=== PATIENT | female | born 1930 | race Caucasian/White ===

== ENCOUNTER 2016-11-09 16:36 | Emergency (ER) | payer MEDICARE, MEDICAID ==
[~2016-11-09] VITALS: Ht 160 cm; Wt 78.0 kg
[2016-11-09] MEDS ORDERED: IPRATROPIUM NEB FS 0.5 MG/2.5 ML AMPUL.NEB ONE (16:41)
[2016-11-09] MEDS ORDERED: ALBUTEROL FS 2.5 MG/3 ML VIAL.NEB ONE ×3 (16:41→19:15)
[2016-11-09] MEDS ORDERED: Magnesium 1GM/D5W 100ML PREMIX 200 ML IV ONE (16:42)
[2016-11-09] MEDS ORDERED: IV NS 0.9% 50 ML IV ONE (16:47)
[2016-11-09] MEDS ORDERED: Magnesium 1GM/D5W 100ML PREMIX 100 ML IV ONE ×2 (16:47→17:34)
[2016-11-09] MEDS ORDERED: IV SET PRIMARY PUMP SET 1 EA INFUS.SET MC ONE ×2 (16:47→17:34)
[2016-11-09] MEDS ORDERED: DEXAMETHASONE SOD PHOSPHATE 10 MG/ML VIAL ONE (16:47)
[2016-11-09] MEDS ORDERED: IPRATROPIUM NEB FS 0.5 MG/2.5 ML AMPUL.NEB NEB ONE (17:00)
[2016-11-09] MEDS ORDERED: ALBUTEROL FS 2.5 MG/3 ML VIAL.NEB CONTNEB ONE (17:00)
[2016-11-09] MEDS ORDERED: DEXAMETHASONE SOD PHOSPHATE 10 MG/ML VIAL IV ONE (17:00)
[2016-11-09 17:17] LABS: DIFF TOTAL % 100 %; EOSINOPHILS % (AUTO) 0.1 % (0.0-6.0); HEMATOCRIT 35 % (33-45); HEMOGLOBIN 11.5 g/dL (11.5-14.8); LYMPHOCYTES # (AUTO) 0.7 /CMM (0.8-4.8); LYMPHOCYTES % (AUTO) 5.5 % (20.0-44.0); MEAN CORPUSCULAR HEMOGLOBIN 27 PG (26.0-33.0); MEAN CORPUSCULAR HGB CONC 33 g/dl (31.0-36.0); MEAN CORPUSCULAR VOLUME 84 fL (82-100); MONOCYTES # (AUTO) 0.4 /CMM (0.1-1.30); MONOCYTES % (AUTO) 3.5 % (2.0-12.0); NEUTROPHILS % (AUTO) 90.9 % (43.0-81.0); PLATELET COUNT (AUTO) 270 /CMM (150-450); RED BLOOD CELL COUNT(AUTO) 4.18 MIL/uL (4.0-5.2); WHITE BLOOD COUNT (AUTO) 12.1 K/uL (4.3-11.0)
[2016-11-09 17:34] LABS: TROPONIN I < 0.017 ng/mL (0.00-0.056)
[2016-11-09 17:40] LABS: ALANINE AMINOTRANSFERASE 18 U/L (12-78); ALBUMIN 3.4 g/dL (3.4-5.0); ANION GAP 15 (5-14); ASPARTATE AMINOTRANSFERASE 15 U/L (15-37); BILIRUBIN,TOTAL 0.2 mg/dL (0.2-1.0); CALCIUM, SERUM 10.9 mg/dL (8.5-10.1); CARBON DIOXIDE 22 mmol/L (21-32); CHLORIDE 100 mmol/L (98-107); CREATININE 1.4 mg/dL (0.6-1.3); GLUCOSE 228 mg/dL (74-106); POTASSIUM 4.1 mmol/L (3.5-5.1); SODIUM SERUM 133 mmol/L (136-145); TOTAL PROTEIN, SERUM 6.3 g/dL (6.4-8.2); UREA NITROGEN, BLOOD 32 mg/dL (7-18)
[2016-11-09 18:10] LABS: *LACTIC ACID REFLEX FLAG YES
[2016-11-09] MEDS ORDERED: FUROSEMIDE 20 MG/2 ML VIAL ONE (18:57)
[2016-11-09] MEDS ORDERED: FUROSEMIDE 20 MG/2 ML VIAL IV ONE (19:00)
[2016-11-09] MEDS ORDERED: ALBUTEROL FS 2.5 MG/0.5 ML VIAL.NEB NEB ONE (19:00)
[2016-11-09 19:06] LABS: KETONES,URINE NEGATIVE (NEGATIVE); LEUKOCYTE ESTERASE ,URINE TRACE (NEGATIVE); PH,URINE 5.5 (5.0-8.0)
[2016-11-09 19:16] LABS: ADD UA MICROSCOPIC YES
[2016-11-09 19:26] LABS: ADD URINE CULTURE YES
[2016-11-09] MEDS ORDERED: NITROFURANTOIN/NITROFURAN MAC 100 MG CAPSULE PO ONE (19:30)
[2016-11-09] MEDS ORDERED: NITROFURANTOIN/NITROFURAN MAC 100 MG CAPSULE ONE (21:05)
[2016-11-09 21:28] VITALS: BP 120/62
== END 2016-11-09 21:46 | disposition short-term general hospital (02) ==
LOC: ER 16:38 → MERGE 16:38 → ER 21:46
DX: J45.901 Unspecified asthma with (acute) exacerbation (principal); Z88.0 Allergy status to penicillin; Z88.2 Allergy status to sulfonamides; Z88.1 Allergy status to other antibiotic agents; Z88.5 Allergy status to narcotic agent
CPT/HCPCS: 36415; 71010; 80048; 80076; 81001; 83605 ×2; 83880; 84484; 85025; 87040; 87077; 87081; 87086; 87186; 87804; 93005; 94644; 96365; 96375; 99291; A4216; A4606; J1100; J1940; J3475 ×2; 81000-TC; 87400; Z7610

== ENCOUNTER 2017-07-20 14:30 | Outpatient (CLI) | payer MEDICARE, MEDICAID | END 2017-07-20 23:59 | disposition home health service (06) | LOC: WOU 14:30 | PROVIDERS: ATTEND Surgery | DX: L89.321 Pressure ulcer of left buttock, stage 1 (principal); L89.311 Pressure ulcer of right buttock, stage 1; E66.9 Obesity, unspecified; Z68.31 Body mass index [BMI] 31.0-31.9, adult; E11.9 Type 2 diabetes mellitus without complications; M19.90 Unspecified osteoarthritis, unspecified site; Z74.09 Other reduced mobility; K21.9 Gastro-esophageal reflux disease without esophagitis; J44.9 Chronic obstructive pulmonary disease, unspecified | CPT/HCPCS: A6209; A6402; G0463 ==

== ENCOUNTER 2017-12-15 18:48 | Inpatient (IN) | payer MEDICARE, MEDICAID ==
[~2017-12-15] VITALS: Ht 165.1 cm; Wt 74.4 kg
--- NOTE | 2017-12-15 19:00 | NUR ---
Recieved pt to ed bed 02, pt was brought in 911 from home for generalized weakness and rt leg pain. accdg to daughter pt was sitting in the toilet seat and coud not get up. she's not eating for the past 2 days because she has no apetite. denies pain/sob/cehst pain. pt placed on cont monitoring. all needs are attended.
--- NOTE | 2017-12-15 19:09 | NUR ---
report given to
--- NOTE | 2017-12-15 19:58 | NUR ---
IN AND OUT CATH DONE AT THE BEDSIDE.
[2017-12-15 20:01] LABS: BASOPHILS # (AUTO) 0.9 /CMM (0.0-0.2); BASOPHILS % (AUTO) 4.6 % (0.0-2.0); EOSINOPHILS % (AUTO) 0.1 % (0.0-6.0); HEMATOCRIT 35 % (33-45); HEMOGLOBIN 12.1 g/dL (11.5-14.8); LYMPHOCYTES # (AUTO) 0.7 /CMM (0.8-4.8); LYMPHOCYTES % (AUTO) 3.9 % (20.0-44.0); MEAN CORPUSCULAR HEMOGLOBIN 29 PG (26.0-33.0); MEAN CORPUSCULAR HGB CONC 35 g/dl (31.0-36.0); MEAN CORPUSCULAR VOLUME 83 fL (82-100); MONOCYTES # (AUTO) 1.3 /CMM (0.1-1.30); MONOCYTES % (AUTO) 6.6 % (2.0-12.0); NEUTROPHILS # (AUTO) 16.1 /CMM (1.8-8.9); NEUTROPHILS % (AUTO) 84.8 % (43.0-81.0); PLATELET COUNT (AUTO) 303 /CMM (150-450); RDW COEFFICIENT OF VARIATION 13.2 (11.5-15.0); RED BLOOD CELL COUNT(AUTO) 4.21 MIL/uL (4.0-5.2)
--- NOTE | 2017-12-15 20:12 | NUR ---
XRAY DONE AT THE BEDSIDE.
[2017-12-15 20:14] LABS: CALCIUM, SERUM 10.8 mg/dL (8.5-10.1); CARBON DIOXIDE 23 mmol/L (21-32); CHLORIDE 100 mmol/L (98-107); CREATININE 1.2 mg/dL (0.6-1.3); GLUCOSE 164 mg/dL (74-106); POTASSIUM 5.5 mmol/L (3.5-5.1); SODIUM SERUM 132 mmol/L (136-145); UREA NITROGEN, BLOOD 24 mg/dL (7-18)
[2017-12-15 20:16] LABS: INR 0.99 (0.85-1.15)
[2017-12-15 20:21] LABS: ALANINE AMINOTRANSFERASE 21 U/L (12-78); ALBUMIN 3.4 g/dL (3.4-5.0); ALKALINE PHOSPHATASE 75 U/L (46-116); ASPARTATE AMINOTRANSFERASE 37 U/L (15-37); BILIRUBIN,TOTAL 0.4 mg/dL (0.2-1.0); TROPONIN I < 0.017 ng/mL (0.00-0.056)
[2017-12-15 20:48] LABS: APPEARANCE,URINE Slightly Cloudy (CLEAR); BILIRUBIN,URINE Negative (NEGATIVE); BLOOD, URINE Trace-intact Ery/uL (NEGATIVE); COLOR,URINE Yellow (YELLOW); KETONES,URINE Negative (NEGATIVE); LEUKOCYTE ESTERASE ,URINE Trace (NEGATIVE); NITRITE, URINE Negative (NEGATIVE); PROTEIN,URINE Trace mg/dl (NEGATIVE); UGLUCOSE Negative (NEGATIVE); UROBILINOGEN,URINE 0.2 EU/dL (0.2)
[2017-12-15 20:59] LABS: BACTERIA,URINE Many /HPF (None Seen); SQUAMOUS EPITHELIAL CELL,UR Few /HPF (None Seen)
--- NOTE | 2017-12-15 21:12 | NUR ---
CALLED [employer] PACKAGING CLERK WAS PAGED.
[2017-12-15] MEDS ORDERED: LEVOFLOXACIN 750 MG /D5W 150ML 750 MG in PREMIX 1 EA IV SCH (21:30)
[2017-12-15] MEDS ORDERED: IV NS 0.9% 500 ML BAG IV ONE (21:30)
[2017-12-15] MEDS ORDERED: CHOL200026 PO (21:35)
[2017-12-15] MEDS ORDERED: MAGN500C16 PO (21:35)
[2017-12-15] MEDS ORDERED: PROVENTIL INH (21:35)
[2017-12-15] MEDS ORDERED: LINA290C PO (21:35)
[2017-12-15] MEDS ORDERED: METH4TAB17 PO (21:35)
[2017-12-15] MEDS ORDERED: FUROSEMIDE (21:35)
[2017-12-15] MEDS ORDERED: TYLENOL #3 (21:35)
[2017-12-15] MEDS ORDERED: METF500T4 PO (21:35)
[2017-12-15] MEDS ORDERED: SPIRONOLACTONE (21:35)
[2017-12-15] MEDS ORDERED: ALLO100T PO (21:35)
[2017-12-15] MEDS ORDERED: ATOR10TA PO (21:35)
[2017-12-15] MEDS ORDERED: SINGULAIR (21:35)
[2017-12-15] MEDS ORDERED: MAGN400T6 PO (21:35)
[2017-12-15] MEDS ORDERED: [UNRECOGNIZED DRUG - OTHER] (21:35)
[2017-12-15] MEDS ORDERED: AZIL40TA PO (21:35)
[2017-12-15] MEDS ORDERED: CINA30TA2 PO (21:35)
[2017-12-15] MEDS ORDERED: ESOM40CA PO (21:35)
[2017-12-15] MEDS ORDERED: TRAV5DRO OP (21:35)
[2017-12-15] MEDS ORDERED: CLOP75TA15 PO (21:35)
[2017-12-15] MEDS ORDERED: MIRABEGRON (21:35)
[2017-12-15] MEDS ORDERED: LEVOFLOXACIN 750 MG /D5W 150ML 150 ML IV ONE (21:37)
--- NOTE | 2017-12-15 21:46 | NUR ---
LATANYA PUGA AT THE BEDSIDE.
--- NOTE | 2017-12-15 21:47 | NUR ---
PT REC'D MEDICATION ORDERED.
--- NOTE | 2017-12-15 21:50 | NUR ---
PT STATED THAT SHE TAKES LEVOQUIN. DR. MORA IS AWARE. PT'S ALLERGY IS TO CIPRO.
[2017-12-15] MEDS ORDERED: diphenhydrAMINE HCL 50 MG/ML VIAL ONE (21:59)
--- NOTE | 2017-12-15 22:03 | NUR ---
WENT IN TO CHECK ON PT AND REMOVE THE BED SON. PT WAS SCRATCHING HER RT ARM. PT DENIES FEELING ITCHY. BED SON REMOVED.
--- NOTE | 2017-12-15 22:03 | NUR ---
PT REACTED TO LEVOQUIN. IV INFUSION STOPPED. IV FLUSHED WITH 10ML SALINE. PT REC'D BENADRYL IVP PER DR. MORA
[2017-12-15] MEDS ORDERED: MEROPENEM 500 MG VIAL IV ONE (22:06)
--- NOTE | 2017-12-15 22:16 | NUR ---
PT APPEARS TO BE RESTING COMFORTABLY. NO S/S OF REACTION NOTED.
--- NOTE | 2017-12-15 22:17 | NUR ---
CALLED TO GIVE REPORT. UNABLE TO GIVE REPORT NOW. WILL CALL BACK IN 10 MINS.
[2017-12-15] MEDS ORDERED: diphenhydrAMINE HCL 50 MG/ML VIAL IV ONE (22:30)
[2017-12-15] MEDS ORDERED: MEROPENEM 500 MG in IV NS 0.9% 50 ML IV ONE (22:30)
--- NOTE | 2017-12-15 22:35 | NUR ---
REPORT GIVEN TO LEONILA CASTANEDA
[2017-12-15 23:00] VITALS: BP 139/96
[2017-12-15] MEDS ORDERED: ONDANSETRON HCL/PF 4 MG/2 ML VIAL IVP PRN (23:00)
[2017-12-15] MEDS ORDERED: MAGNESIUM HYDROXIDE 30 ML UDC PO PRN (23:00)
[2017-12-15] MEDS ORDERED: MAG HYDROX/AL HYDROX/SIMETH 30 ML UDC PO PRN (23:00)
[2017-12-15] MEDS ORDERED: Z GUARD REMEDY 2 OZ OINT TP PRN (23:00)
[2017-12-15] MEDS ORDERED: HYDROCODONE/APAP 5/325MG 1 EACH TABLET PO PRN (23:00)
--- NOTE | 2017-12-15 23:00 | NUR ---
MS/RN NOTES RECEIVED PATIENT FROM ER ARRIVED ON A GURNEY, ALERT, ORIENTEDX1, WEAK, FAMILY AT BEDSIDE, WITH COMPLAIN OF WEAKNESS AND RIGHT LEG PAIN, PER FAMILY PREFER PAIN MEDICATION TYLENOL NO 3 AND REFUSE NORCO OR TRAMADOL, PER ER, DX WITH UTI ON ABT OF MEROPENEM PATIENT HAS ALLERGIC REACTION TO MANY ANTIBIOTIC INCLUDING LEVAQUIN, NON AMBULATORY AND ON DIAPER, MONITORING FOR FEVER ANS ANY CHANGES, MEDICATION LIST, MD TO VERIFY, IV ON RIGHT HAND GAUGE 22, SKIN ISSUES WITH BLE EDEMA +3 PITTING, NOTED REDNESS AND REDNESS ON SACRAL AREA, AND DISCOLORATION ON LEFT THIGH.
[2017-12-16] MEDS: IV NS 0.9% 1,000 ML IV PRN (01:29)
[2017-12-16] MEDS: methylPREDNISolone (4MG) 4 MG TABLET PO SCH (06:26)
--- NOTE | 2017-12-16 06:42 | NUR ---
ms/rn notes patient inbed, awake, able to verbalize needs, provided fluids, able to swallow pills, respirations even and unlabored, denies pain, call lights within reach, bed in lock position, will endorse to am rn for juliana.
[2017-12-16 08:00] VITALS: BP 119/56
--- NOTE | 2017-12-16 08:00 | NUR ---
RN NOTES RECEIVE PATIENT IN THE BED A/O X2/3 JASEN FAIR. PATIENT HAS NO RESPIRATORY DISTRESS, V/S STABLE, IV LINE ON RIGHT HAND INTACT INFUSING NS ATT 75 ML/HR. NEEDS ATTENDED AND ANTICIPATED, SCHEDULED MEDICATION ADMINISTERED, ASSIST PATIENT USING BED SIDE COMMODE. CALL LIGHT WITHIN TO REACH. SAFETY PRECAUTION MAINTAINED ALL THE TIME.
[2017-12-16 08:24] LABS: BASOPHILS % (AUTO) 0.2 % (0.0-2.0); HEMATOCRIT 32 % (33-45); HEMOGLOBIN 10.8 g/dL (11.5-14.8); LYMPHOCYTES # (AUTO) 0.9 /CMM (0.8-4.8); LYMPHOCYTES % (AUTO) 7.2 % (20.0-44.0); MEAN CORPUSCULAR HEMOGLOBIN 29 PG (26.0-33.0); MEAN CORPUSCULAR HGB CONC 34 g/dl (31.0-36.0); MEAN CORPUSCULAR VOLUME 84 fL (82-100); MONOCYTES # (AUTO) 1.2 /CMM (0.1-1.30); MONOCYTES % (AUTO) 9.6 % (2.0-12.0); NEUTROPHILS # (AUTO) 10.4 /CMM (1.8-8.9); PLATELET COUNT (AUTO) 231 /CMM (150-450); RDW COEFFICIENT OF VARIATION 14.1 (11.5-15.0); RED BLOOD CELL COUNT(AUTO) 3.76 MIL/uL (4.0-5.2); WHITE BLOOD COUNT (AUTO) 12.6 K/uL (4.3-11.0)
[2017-12-16 08:49] LABS: CHOLESTEROL 164 mg/dL (<200); HDL CHOLESTEROL 81 mg/dL (40-60); LDL 77 mg/dL (0-99); THYROID STIMULATING HORMONE 1.873 uIU/mL (0.358-3.74); TRIGLYCERIDES 58 mg/dL (30-150)
[2017-12-16 08:51] LABS: CALCIUM, SERUM 9.8 mg/dL (8.5-10.1); CARBON DIOXIDE 23 mmol/L (21-32); CHLORIDE 103 mmol/L (98-107); CREATININE 1.1 mg/dL (0.6-1.3); GLUCOSE 124 mg/dL (74-106); PHOSPHORUS 2.5 mg/dL (2.5-4.9); POTASSIUM 4.3 mmol/L (3.5-5.1); SODIUM SERUM 135 mmol/L (136-145); UREA NITROGEN, BLOOD 19 mg/dL (7-18)
[2017-12-16 09:27] LABS: MAGNESIUM 1.2 mg/dL (1.8-2.4)
[2017-12-16] MEDS: CINACALCET HCL 30 MG TABLET PO SCH (09:44)
[2017-12-16] MEDS: ACETAMINOPHEN 325 MG TABLET PO PRN ×2 (09:44→21:08)
[2017-12-16] MEDS: PANTOPRAZOLE 40 MG TABLET.DR PO SCH (09:44)
[2017-12-16] MEDS: CLOPIDOGREL BISULFATE 75 MG TABLET PO SCH (09:44)
[2017-12-16] MEDS: METFORMIN 500 MG TABLET PO SCH ×2 (09:44→17:37)
--- NOTE | 2017-12-16 09:44 | NUR ---
rn notes administered tylenol 650 mg po prn for generalized pain 5/10, continued monitoring.
[2017-12-16] MEDS: MEROPENEM 500 MG in IV NS 0.9% 50 ML IV SCH ×2 (09:45→21:15)
[2017-12-16] MEDS: ATORVASTATIN 10 MG TABLET PO SCH (09:45)
[2017-12-16] MEDS: MAGNESIUM OXIDE 400 MG TABLET PO SCH ×2 (09:45→17:37)
[2017-12-16] MEDS: ALLOPURINOL 100 MG TABLET PO SCH (09:45)
[2017-12-16] MEDS ORDERED: Magnesium 1GM/D5W 100ML PREMIX PIGGYBACK IV ONE (10:30)
[2017-12-16] MEDS: Magnesium 1GM/D5W 100ML PREMIX 100 ML IV SCH ×4 (11:04→14:36)
--- NOTE | 2017-12-16 12:00 | NUR ---
RN NOTES PATIENT IN THE BED NO ACUTE DISTRESS, INFUSING MG AT THIS TIME, NO ACUTE RESPIRATORY DISTRESS, CALL LIGHT WITHIN TO REACH, ASSIST TURN AND REPOSITION Q 2 HR.
[2017-12-16] MEDS ORDERED: K PHOS NEUTRAL 250 MG TABLET PO ONE (12:30)
[2017-12-16 16:00] VITALS: BP 101/54
--- NOTE | 2017-12-16 17:00 | NUR ---
RN NOTES PATIENT IN THE BED SCHEDULED MEDICATION ADMINISTERED, NO ACUTE DISTRESS, NO C/O PAIN AT THIS TIME. PATIENT WAS C/O SOUR THROAT. DAUGHTER NEXT TO THE BED. CALL LIGHT WITHIN TO REACH, PATIENT EATING DINNER, SAFETY PRECAUTION MAINTAINED ALL THE TIME.
--- NOTE | 2017-12-16 19:31 | NUR ---
RN NOTES C PATIENT WHEEZING AT THIS TIME , NO ACUTE SOB, PATIENT A/O X3, AUSTRIAN SPEAKER, APPLIED O2 2L NC, CALLED ONCALFREDO TERRY, AND GET ORDER ALBUTEROL 2.5 , AND PROVENTIL 2.5 Q6 HR, ORDER TAKEN AND CARRIED OUT.
--- NOTE | 2017-12-16 19:44 | NUR ---
RN NOTES ENDORSED ONCOMING NURSE FOR TUCKER.
--- NOTE | 2017-12-16 19:59 | NUR ---
ms/rn notes patient alert, oriented x3 able to verbalize needs, observed wheezing,with md order for breathing tx, uses commode bedside, will monitor for safety, call lights within reach, bed alarm on, bed in lock position.
[2017-12-16 20:00] VITALS: BP 119/58
[2017-12-16] MEDS: ALBUTEROL FS 2.5 MG/3 ML VIAL.NEB NEB SCH (20:39)
[2017-12-17] MEDS: ALBUTEROL FS 2.5 MG/3 ML VIAL.NEB NEB SCH ×4 (02:15→21:30)
[2017-12-17] MEDS ORDERED: ACETAMINOPHEN W/ CODEINE#3 1 EA TABLET PO ONE (03:30)
--- NOTE | 2017-12-17 03:30 | NUR ---
ms/rn notes patient reported pain of 10/10 on right leg, guardimg and grimace,unable, reported medication tylenol #3 codeine being taken for home med that relieve her pain, informed and MD Hayden also ordered r/o DVT to check through ultrasound of doppler. order carried out.
[2017-12-17] MEDS: IV NS 0.9% 1,000 ML IV PRN (06:30)
--- NOTE | 2017-12-17 06:37 | NUR ---
ms/rn closing notes patient in bed, awake, alert x3. Able to verbalize needs, slept few hours, assisted to bedside commode and with routine breathing treatment, pain medication given per barbara takes tylenol 3, md aware, pharmacy made aware for only one time and follow up in am for any concerns, bed in lock position, call lights within reach, will continue to monitor.
[2017-12-17 07:02] LABS: BASOPHILS % (AUTO) 0.5 % (0.0-2.0); EOSINOPHILS % (AUTO) 0.2 % (0.0-6.0); HEMATOCRIT 29 % (33-45); HEMOGLOBIN 9.7 g/dL (11.5-14.8); LYMPHOCYTES # (AUTO) 0.9 /CMM (0.8-4.8); LYMPHOCYTES % (AUTO) 12.4 % (20.0-44.0); MEAN CORPUSCULAR HEMOGLOBIN 29 PG (26.0-33.0); MEAN CORPUSCULAR HGB CONC 34 g/dl (31.0-36.0); MEAN CORPUSCULAR VOLUME 85 fL (82-100); MONOCYTES # (AUTO) 0.9 /CMM (0.1-1.30); MONOCYTES % (AUTO) 11.5 % (2.0-12.0); NEUTROPHILS # (AUTO) 5.6 /CMM (1.8-8.9); NEUTROPHILS % (AUTO) 75.4 % (43.0-81.0); PLATELET COUNT (AUTO) 186 /CMM (150-450); RDW COEFFICIENT OF VARIATION 14.2 (11.5-15.0); WHITE BLOOD COUNT (AUTO) 7.4 K/uL (4.3-11.0)
[2017-12-17 07:13] LABS: CALCIUM, SERUM 9.8 mg/dL (8.5-10.1); CARBON DIOXIDE 24 mmol/L (21-32); CHLORIDE 103 mmol/L (98-107); CREATININE 1.1 mg/dL (0.6-1.3); GLUCOSE 111 mg/dL (74-106); POTASSIUM 4.2 mmol/L (3.5-5.1); SODIUM SERUM 135 mmol/L (136-145); UREA NITROGEN, BLOOD 20 mg/dL (7-18)
--- NOTE | 2017-12-17 07:44 | NUR ---
MS/RN OPENING NOTE PATIENT IN BED IN STABLE CONDITION. A/O X 2-3. DUTCH SPEAKING. NO SIGNS OF ACUTE DISTRESS. NO COMPLAIN OF PAIN OR DISCOMFORT. ALL NEEDS ATTENDED TO. CALL LIGHT WITHIN REACH. WILL CONTINUE TO MONITOR TO ENSURE SAFETY.
[2017-12-17 08:00] VITALS: BP 126/52
[2017-12-17] MEDS: ALLOPURINOL 100 MG TABLET PO SCH (08:41)
[2017-12-17] MEDS: MEROPENEM 500 MG in IV NS 0.9% 50 ML IV SCH ×2 (08:41→21:11)
[2017-12-17] MEDS: CINACALCET HCL 30 MG TABLET PO SCH (08:42)
[2017-12-17] MEDS: PANTOPRAZOLE 40 MG TABLET.DR PO SCH (08:43)
[2017-12-17] MEDS: ATORVASTATIN 10 MG TABLET PO SCH (08:43)
[2017-12-17] MEDS: METFORMIN 500 MG TABLET PO SCH ×3 (08:43→17:07)
[2017-12-17] MEDS: MAGNESIUM OXIDE 400 MG TABLET PO SCH ×3 (08:44→17:07)
[2017-12-17] MEDS: CLOPIDOGREL BISULFATE 75 MG TABLET PO SCH (08:46)
[2017-12-17 09:19] VITALS: BP 126/52
--- NOTE | 2017-12-17 10:57 | NUR ---
/RN RAPID INFLUENZA TEST SPECIMEN COLLECTED RAPID INFLUENZA SPECIMEN COLLECTED AND PICKED UP BY LAB. PER LAB THE SPECIMEN NEED TO BE SENT TO [facility] FOR EVALUATION. Addendum: 12/17/17 at 1549 by BRIAN KAUFFMAN RN DOCUMENTATION FOR ANOTHER PATIENT, PLEASE DISREGARD ABOVE DOCUMENTATION.
[2017-12-17] MEDS ORDERED: ACETAMINOPHEN W/ CODEINE#3 1 EA TABLET PO PRN (14:30)
[2017-12-17] MEDS: DOCUSATE SODIUM 100 MG CAPSULE PO SCH ×2 (14:52→17:00)
[2017-12-17 16:00] VITALS: BP 156/73
--- NOTE | 2017-12-17 16:59 | NUR ---
MS/RN SPOKE WITH DR ANABELA HOWELL SPOKE WITH DR ANABELA HOWELL AND MADE AWARE PATIENT DAUGHTER REQUESTING FOR FLEET ENEMA SECONDARY TO PATIENT HAD NO BM X 4 DAYS WITH NEW ORDER FOR FLEET ENEMA X 1.
[2017-12-17] MEDS ORDERED: NA PHOS,M-B/NA PHOS,DI-BA 1 EA ENEMA RC ONE (17:00)
[2017-12-17] MEDS ORDERED: NA PHOS,M-B/NA PHOS,DI-BA 1 EA ENEMA RC PRN (18:00)
--- NOTE | 2017-12-17 18:50 | NUR ---
MS/RN CLOSING NOTE PATIENT IN BED IN STABLE CONDITION. A/O X 3. NO SIGNS OF ACUTE DISTRESS. NO COMPLAIN OF PAIN OR DISCOMFORT. ALL NEEDS ATTENDED TO. CALL LIGHT WITHIN REACH. WILL ENDORSE TO NEXT SHIFT FOR CONTINUITY OF CARE.
--- NOTE | 2017-12-17 19:40 | NUR ---
RN OPENING NOTES PATIENT IS SLEEPING IN BED, EASY TO AROUSE, ALERT AND ORIENTED X3. VS STABLE. NO PAIN OR DISCOMFORT NOTED AT THIS TIME. RESPIRATIONS EVEN AND UNLABORED. NO SOB NOTED. IV ACCESS ON RIGHT HAND 22 G PATENT AND INTACT, INFUSING NS AT 75 ML/HR. NO REDNESS OR INFILTRATION NOTED. BED IN LOW AND LOCKED POSITION, SIDE RAILS X2. CALL LIGHT WITHIN EASY REACH. WILL CONTINUE TO MONITOR AND ASSESS DURING THE SHIFT.
[2017-12-17 20:00] VITALS: BP 153/80
[2017-12-17] MEDS ORDERED: MONTELUKAST SODIUM (10MG) 10 MG TABLET PO SCH (22:00)
[2017-12-17] MEDS ORDERED: LATANOPROST EYE DROP 0.005% 2.5 ML BOTTLE EACHEYE SCH (22:00)
--- NOTE | 2017-12-17 22:00 | NUR ---
RN NOTES EYE DROPS IS NOT AVAILABLE
[2017-12-18] MEDS: ALBUTEROL FS 2.5 MG/3 ML VIAL.NEB NEB SCH ×3 (01:57→14:24)
[2017-12-18] MEDS: methylPREDNISolone (4MG) 4 MG TABLET PO SCH (06:57)
--- NOTE | 2017-12-18 07:38 | NUR ---
MS/RN OPENING NOTE PATIENT IN BED IN STABLE CONDITION. A/O X3. NO SIGNS OF ACUTE DISTRESS. NO COMPLAIN OF PAIN OR DISCOMFORT. ALL NEEDS ATTENDED TO. CALL LIGHT WITHIN REACH. WILL CONTINUE TO MONITOR TO ENSURE SAFETY.
[2017-12-18 07:39] LABS: BASOPHILS % (AUTO) 0.4 % (0.0-2.0); EOSINOPHILS % (AUTO) 0.8 % (0.0-6.0); HEMATOCRIT 32 % (33-45); HEMOGLOBIN 10.7 g/dL (11.5-14.8); LYMPHOCYTES # (AUTO) 1.4 /CMM (0.8-4.8); MEAN CORPUSCULAR HEMOGLOBIN 29 PG (26.0-33.0); MEAN CORPUSCULAR HGB CONC 34 g/dl (31.0-36.0); MEAN CORPUSCULAR VOLUME 85 fL (82-100); MONOCYTES # (AUTO) 0.8 /CMM (0.1-1.30); MONOCYTES % (AUTO) 12.8 % (2.0-12.0); NEUTROPHILS # (AUTO) 3.8 /CMM (1.8-8.9); PLATELET COUNT (AUTO) 206 /CMM (150-450); RDW COEFFICIENT OF VARIATION 14.3 (11.5-15.0); RED BLOOD CELL COUNT(AUTO) 3.77 MIL/uL (4.0-5.2); WHITE BLOOD COUNT (AUTO) 6.1 K/uL (4.3-11.0)
[2017-12-18 07:54] LABS: CALCIUM, SERUM 10.2 mg/dL (8.5-10.1); CARBON DIOXIDE 23 mmol/L (21-32); CHLORIDE 105 mmol/L (98-107); CREATININE 1.1 mg/dL (0.6-1.3); GLUCOSE 102 mg/dL (74-106); MAGNESIUM 1.5 mg/dL (1.8-2.4); PHOSPHORUS 3.1 mg/dL (2.5-4.9); POTASSIUM 4.4 mmol/L (3.5-5.1); SODIUM SERUM 137 mmol/L (136-145); UREA NITROGEN, BLOOD 17 mg/dL (7-18)
[2017-12-18 08:00] VITALS: BP 119/72
[2017-12-18] MEDS: PANTOPRAZOLE 40 MG TABLET.DR PO SCH (08:42)
[2017-12-18] MEDS: ATORVASTATIN 10 MG TABLET PO SCH (08:42)
[2017-12-18] MEDS: MEROPENEM 500 MG in IV NS 0.9% 50 ML IV SCH (08:42)
[2017-12-18] MEDS: MAGNESIUM OXIDE 400 MG TABLET PO SCH (08:43)
[2017-12-18] MEDS: DOCUSATE SODIUM 100 MG CAPSULE PO SCH (08:43)
[2017-12-18] MEDS: CINACALCET HCL 30 MG TABLET PO SCH (08:43)
[2017-12-18] MEDS: METFORMIN 500 MG TABLET PO SCH (08:43)
[2017-12-18] MEDS: CLOPIDOGREL BISULFATE 75 MG TABLET PO SCH (08:43)
[2017-12-18] MEDS: ALLOPURINOL 100 MG TABLET PO SCH (08:43)
[2017-12-18] MEDS ORDERED: CEPH-570 PO (15:04)
[2017-12-18] MEDS: ACETAMINOPHEN 325 MG TABLET PO PRN (17:37)
--- NOTE | 2017-12-18 18:24 | NUR ---
MS/BUILDING CLEANER PATIENT DISCHARGE TO [facility]. A/O X 3. NO SIGNS OF ACUTE DISTRESS. NO COMPLAIN OF PAIN OR DISCOMFORT. DISCHARGE INSTRUCTIONS AND EDUCATION PROVIDED, PATIENT VERBALIZED UNDERSTANDING. REPORT GIVEN TO ERIK KEEN FROM REHAB. ALL NEEDS ATTENDED TO. NAME BAND AND IV LINE REMOVED. MELVA (DAUGHTER) AWARE REGARDING PATIENT DISCHARGE. LEFT VIA GURNEY ACCOMPANIED BY 2 BELT PRESS OPERATOR IN STABLE CONDITION.
== END 2017-12-18 17:15 | DRG 871 ==
LOC: ER 18:53 → MED 22:07
PROVIDERS: ADMIT Nurse Practitioner Acute Care; ATTEND Nurse Practitioner Acute Care
DX: A41.9 Sepsis, unspecified organism (principal); N17.0 Acute kidney failure with tubular necrosis; G93.41 Metabolic encephalopathy; L03.115 Cellulitis of right lower limb; L03.116 Cellulitis of left lower limb; N39.0 Urinary tract infection, site not specified; E87.1 Hypo-osmolality and hyponatremia; M19.90 Unspecified osteoarthritis, unspecified site; J45.909 Unspecified asthma, uncomplicated; Z88.1 Allergy status to other antibiotic agents; Z88.5 Allergy status to narcotic agent; Z88.0 Allergy status to penicillin; Z88.2 Allergy status to sulfonamides; Z88.8 Allergy status to other drugs, medicaments and biological substances; Z79.899 Other long term (current) drug therapy; Z79.84 Long term (current) use of oral hypoglycemic drugs; K59.00 Constipation, unspecified; Z90.49 Acquired absence of other specified parts of digestive tract; E86.1 Hypovolemia; E83.42 Hypomagnesemia; R65.20 Severe sepsis without septic shock; B96.89 Other specified bacterial agents as the cause of diseases classified elsewhere; E11.65 Type 2 diabetes mellitus with hyperglycemia; G89.29 Other chronic pain; D64.9 Anemia, unspecified; I70.0 Atherosclerosis of aorta; I10 Essential (primary) hypertension
CPT/HCPCS: 36415; 71045-TC; 80048-TC; 80061-TC; 80076-TC; 81000-TC; 82962-TC; 83605-TC; 83735-TC; 84100-TC; 84443-TC; 84484-TC; 85025-TC; 85730-TC; 87040-TC; 87081-TC; 87086-TC; 87186-TC; 93971-TC; A4216; A4606; J2185; J3475; J7030; J7040; J7509; Z7610

== ENCOUNTER 2018-04-02 10:53 | Inpatient (IN) | payer MEDICARE, MEDICAID ==
[~2018-04-02] VITALS: Ht 152.4 cm; Wt 70.8 kg
[~2018-04-02 10:53] MED LIST: ALLO100T PO; ATOR10TA PO; AZIL40TA PO; CEPH-570 PO; CHOL200026 PO; CINA30TA2 PO; CLOP75TA15 PO; ESOM40CA PO; FUROSEMIDE; LINA290C PO; MAGN400T6 PO; MAGN500C16 PO; METF-440 PO; METH4TAB17 PO; MIRABEGRON; PROVENTIL INH; SINGULAIR; SPIRONOLACTONE; TRAV5DRO EACHEYE; TYLENOL #3; [UNRECOGNIZED DRUG - OTHER]
--- NOTE | 2018-04-02 11:00 | NUR ---
MARLEY FROM HOME DT SP FALL. PATIENT IS AWAKE AND ALERT, COMPLAINING OF RIGHT HIP PAIN. PATIENT'S SKIN IS WARM TO TOUCH AND NON DIAPHORETIC. PATIENT IS AFEBRILE. VSS
[2018-04-02] MEDS ORDERED: ONDANSETRON HCL/PF 4 MG/2 ML VIAL ONE (11:15)
[2018-04-02] MEDS ORDERED: MORPHINE SULFATE INJ 2 MG/ML DISP.SYRIN ONE ×2 (11:16→12:44)
[2018-04-02 11:29] LABS: BASOPHILS # (AUTO) 0.2 /CMM (0.0-0.2); EOSINOPHILS % (AUTO) 4.9 % (0.0-6.0); HEMATOCRIT 35 % (33-45); HEMOGLOBIN 11.6 g/dL (11.5-14.8); LYMPHOCYTES # (AUTO) 2.3 /CMM (0.8-4.8); LYMPHOCYTES % (AUTO) 25.3 % (20.0-44.0); MEAN CORPUSCULAR HGB CONC 33 g/dl (31.0-36.0); MEAN CORPUSCULAR VOLUME 81 fL (82-100); MONOCYTES # (AUTO) 1.1 /CMM (0.1-1.30); MONOCYTES % (AUTO) 11.6 % (2.0-12.0); NEUTROPHILS # (AUTO) 5.1 /CMM (1.8-8.9); NEUTROPHILS % (AUTO) 56.2 % (43.0-81.0); PLATELET COUNT (AUTO) 375 /CMM (150-450); RDW COEFFICIENT OF VARIATION 14.1 (11.5-15.0); RED BLOOD CELL COUNT(AUTO) 4.36 MIL/uL (4.0-5.2); WHITE BLOOD COUNT (AUTO) 9.1 K/uL (4.3-11.0)
[2018-04-02] MEDS ORDERED: IV NS 0.9% 1,000 ML BAG IV ONE (11:30)
[2018-04-02] MEDS ORDERED: MORPHINE SULFATE INJ 2 MG/ML DISP.SYRIN IV ONE ×2 (11:30→13:30)
[2018-04-02] MEDS ORDERED: ONDANSETRON HCL/PF 4 MG/2 ML VIAL IVP ONE (11:30)
[2018-04-02 11:41] LABS: CALCIUM, SERUM 11.5 mg/dL (8.5-10.1); CARBON DIOXIDE 24 mmol/L (21-32); CHLORIDE 101 mmol/L (98-107); CREATININE 1.2 mg/dL (0.6-1.3); GLUCOSE 115 mg/dL (74-106); SODIUM SERUM 133 mmol/L (136-145); UREA NITROGEN, BLOOD 33 mg/dL (7-18)
[2018-04-02 11:47] LABS: ALANINE AMINOTRANSFERASE 13 U/L (12-78); ALBUMIN 3.5 g/dL (3.4-5.0); ALKALINE PHOSPHATASE 83 U/L (46-116); ASPARTATE AMINOTRANSFERASE 15 U/L (15-37); BILIRUBIN,DIRECT 0.1 mg/dL (0.0-0.2); BILIRUBIN,TOTAL 0.4 mg/dL (0.2-1.0); TOTAL PROTEIN, SERUM 6.8 g/dL (6.4-8.2)
[2018-04-02 11:48] LABS: INR 0.98 (0.85-1.15)
[2018-04-02 12:06] LABS: TROPONIN I < 0.017 ng/mL (0.00-0.056)
[2018-04-02] MEDS ORDERED: ACET1TAB23 PO (12:08)
[2018-04-02] MEDS ORDERED: BUDE10.2 IH (12:08)
[2018-04-02] MEDS ORDERED: NALO25TA PO (12:08)
[2018-04-02] MEDS ORDERED: SPIR25TA6 PO (12:08)
[2018-04-02] MEDS ORDERED: MORP15TA7 PO (12:08)
[2018-04-02] MEDS ORDERED: ALBU6.7H IH (12:08)
[2018-04-02] MEDS ORDERED: MONT10TA22 PO (12:08)
[2018-04-02] MEDS ORDERED: LEVO25TA7 PO (12:11)
[2018-04-02] MEDS ORDERED: MYRBETRIQ PO (12:11)
--- NOTE | 2018-04-02 13:13 | NUR ---
CALLED NURSING SUP. FOR MS BED
--- NOTE | 2018-04-02 13:14 | NUR ---
MAXIMINO DEL CID, CARMINA PARKER ARTIST BLACKSMITH
--- NOTE | 2018-04-02 13:32 | NUR ---
MS 328-2 FOR FALL, INTRACTABLE PELVIC PAIN, CARMINA PARKER ADMITTING
--- NOTE | 2018-04-02 13:57 | NUR ---
PATIENT TRANSPORTED TO TELE. S
[2018-04-02 15:27] VITALS: BP 141/69
[2018-04-02] MEDS ORDERED: ACETAMINOPHEN 325 MG TABLET PO PRN (15:30)
[2018-04-02] MEDS ORDERED: ZOLPIDEM TARTRATE 5 MG TABLET PO PRN (15:30)
[2018-04-02] MEDS ORDERED: DEXTROSE 50%-WATER 50 ML DISP.SYRIN IV PRN (15:30)
[2018-04-02] MEDS ORDERED: ONDANSETRON HCL/PF 4 MG/2 ML VIAL IVP PRN (15:30)
[2018-04-02] MEDS ORDERED: Z GUARD REMEDY 2 OZ OINT TP PRN (15:30)
[2018-04-02] MEDS ORDERED: IV NS 0.9% 1,000 ML BAG IV PRN (15:30)
[2018-04-02] MEDS ORDERED: MORPHINE SULFATE INJ 2 MG/ML DISP.SYRIN IV PRN (15:30)
[2018-04-02] MEDS ORDERED: MAG HYDROX/AL HYDROX/SIMETH 30 ML UDC PO PRN (15:30)
[2018-04-02] MEDS ORDERED: MAGNESIUM HYDROXIDE 30 ML UDC PO PRN (15:30)
--- NOTE | 2018-04-02 16:00 | NUR ---
ADMISSION NOTES PATIENT ADMITTED FROM ER BOTSWANAN SPEAKER 88 Y/OLD FEMALE ON DX OF S/P FALL. PATIENT A/O X4, NO ACUTE RESPIRATORY DISTRESS, NO SOB, LUNGS ARE CLEAR DURING AUSCULTATION. PATIENT WAS C/O GENERALIZED PAIN 10/10 PER SLIDING SCALE. SKIN ASSESSMENT DONE REDNESS WITH EDEMA LOWER BILATERAL LOWER LEGS, PICTURE TAKEN. KEEP ELEVATED LEGS USING PILLOWS. V/S TAKEN T- 98.5, R-20, BP-141/69, 02--95 ROOM AIR, P-79. IV ACCESS ON RIGHT AC AREA INTACT. PATIENT INCONTINENT USING DIAPER. ASSIST TURN AND REPOSTION Q 2 HR. CALL LIGHT WITHIN TO REACH . FAMILY NEXT TO THE BED. PATIENT ON DNR, NOTIFIED TO BRING PAPERWORK.. ACADEMIC VICE PRESIDENT ELENA AWARE OF NEW PATIENT AND MEDICATION. CONTINUED MONITORING.
[2018-04-02] MEDS ORDERED: HYDROMORPHONE 1 MG/1 ML DISP.SYRIN IV PRN (16:30)
--- NOTE | 2018-04-02 16:30 | NUR ---
RN NOTES PATIENT IS SLEEPING AT THIS TIME. MEDICATION WERE ADMINISTERED IN ER EFFECTIVE, CONTINUED MONITORING.
[2018-04-02] MEDS ORDERED: BUDESONIDE INH SCH (17:00)
[2018-04-02] MEDS ORDERED: MORPHINE SULFATE SR 15 MG TABLET.SA PO SCH (17:00)
[2018-04-02] MEDS ORDERED: FORMOTEROL FUMARATE INH SCH (17:00)
[2018-04-02] MEDS ORDERED: MAGNESIUM OXIDE 400 MG TABLET PO SCH (17:00)
--- NOTE | 2018-04-02 18:30 | NUR ---
RN NOTES GERSON PARKER ORDERED TELE MONITOR, SR-74/76 AT THIS TIME. CONTINUED MONITORING.
[2018-04-02] MEDS: METFORMIN 500 MG TABLET PO SCH (18:55)
[2018-04-02] MEDS: LIDOCAINE 5% (PATCH) 1 EA PATCH TP SCH (18:55)
[2018-04-02] MEDS: BLOOD SUGAR DIAGNOSTIC 1 EACH STRIP IN SCH ×2 (18:55→22:10)
[2018-04-02] MEDS: DOCUSATE SODIUM 100 MG CAPSULE PO SCH (18:57)
--- NOTE | 2018-04-02 18:58 | NUR ---
RN NOTES BS-111 MG/DL, SCHEDULED MEDICATION ADMINISTERED, ALSO ADMINISTERED LIDOCAINE PATCH PRESCRIBED. PATIENT REFUSED PAIN MEDICATION AT THIS TIME PAIN SCALE 6/10, PREFERRED TO TAKE PAIN MEDICATION NIGHT TIME. PATIENT STABLE AT THIS TIME SNACK GIVEN, CALL LIGHT WITHIN TO REACH. CONTINUED MONITORING, ASSIST TURN AND REPOSTION Q 2 HR.
[2018-04-02] MEDS: IV NS 0.9% 1,000 ML IV PRN (19:06)
--- NOTE | 2018-04-02 19:40 | NUR ---
RN INITIAL NOTES: RECEIVED REPORT FROM CHRISTIANO KEEN, PT IN BED, AWAKE, A/O X3 ON 2L VIA NC, PT ON DIFFERENT KINDS OF PAIN MEDICATIONS PER PAIN DOCTOR DR LAM. PT HAS RIGHT HIP CHROMIC PAIN, WITH LIDODERM PATCH IN PLACED. IV ACCESS PATENT AND FLUSHING WELL, INFUSING WITH NS AT 75ML/HR. ON SINUS RHYTHM HR 80. BLE OFFLOADED. DISCUSSED WITH PT REGARDING PLAN OF CARE AND PAIN MEDICATION OPTIONS. SAFETY PRECAUTIONS FOR FALL INITIATED, CALL LIGHT IN REACH, WILL CONTINUE TO MONITOR PT./
[2018-04-02 20:00] VITALS: BP 126/61
[2018-04-02] MEDS: INSULIN REGULAR, HUMAN 100 UNIT/ML 3 ML VIAL SQ PRN (22:10)
--- NOTE | 2018-04-02 22:10 | NUR ---
BS 108: BS 108 NO INSULIN COVERAGE GIVEN PER SLIDING SCALE, PT TOLERATING PO INTAKE WELL
[2018-04-02] MEDS: LATANOPROST EYE DROP 0.005% 2.5 ML BOTTLE EACHEYE SCH (22:13)
--- NOTE | 2018-04-02 22:27 | NUR ---
PRN MORPHINE: PT C/O 06/11 RIGHT HIP PAIN REQUESTING FOR PAIN MEDICATION. PRN MORPHINE 2MG IVP ADMINISTERED TO THE PT AT THIS TIME, WILL CONTINUE TO MONITOR AND REASSESS
--- NOTE | 2018-04-02 23:42 | NUR ---
RN NOTES: DILAUDID 1MG IS OUT OF STOCK IN THE OMNICELL. TEST BAKER AWARE. ORDER WILL REMAINS THE SAME "DILAUDID 1MG IVP Q4HRS FOR 8-10 PAIN, HOWEVER THE STOCK TO USE WILL BE DILAUDID 2MG, SINCE 1MG IS OUT OF STOCK.
--- NOTE | 2018-04-02 23:53 | NUR ---
prn dilaudid: pt stated morphine didnt help with her pain, and it still 08/11, prn Dilaudid 1mg ivp administered at this time, will continue monitoring pt.
[2018-04-03] VITALS: BP 135/53
[2018-04-03] MEDS ORDERED: HYDROMORPHONE INJ 2 MG/ML DISP.SYRIN IV PRN
[2018-04-03 01:20] VITALS: BP 135/69
[2018-04-03] MEDS: HYDROCODONE/APAP 10/325MG 1 EA TABLET PO PRN (01:36)
--- NOTE | 2018-04-03 01:36 | NUR ---
PRN NORCO: PT C/O PAIN ON RIGHT KNEE, 05/11, REQUESTING FOR PAIN MEDICATION, PRN NORCO 10/325 MG TAB PO ADMINISTERED TO THE PT AT THIS TIME, WILL CONTINUE TO MONITOR AND REASSESS
--- NOTE | 2018-04-03 02:47 | NUR ---
RN NOTES: PT NOTED TO BE SLEEPING, NO FACIAL GRIMACE NOTED, APPEARS COMFORTABLE
[2018-04-03 04:00] VITALS: BP 129/71
[2018-04-03] MEDS: INSULIN REGULAR, HUMAN 100 UNIT/ML 3 ML VIAL SQ PRN (06:00)
[2018-04-03] MEDS: BLOOD SUGAR DIAGNOSTIC 1 EACH STRIP IN SCH ×4 (06:00→22:40)
--- NOTE | 2018-04-03 06:07 | NUR ---
BS 81: BLOOD SUGAR 81, NO INSULIN COVERAGE GIVEN PER SLIDING SCALE
--- NOTE | 2018-04-03 06:48 | NUR ---
RN CLOSING NOTES: PT IN BED, AWAKE, REMAINS A/O X3, ON 2L VIA NC RESPIRATION EVEN AND UNLABORED, IV ACCESS REMAINS PATENT AND FLUSHING WELL, INFUSING WITH NS AT 75ML/HR. ON SINUS RHYTHM HR 77. BLE OFFLOADED. FOR WOUND CARE CONSULT TODAY. LIDODERM PATCH ON RIGHT HIP REMOVED. ORDER IS 12HRS ON AND 12HRS OFF. IT WAS PLACED AT 1855 ON 04/02/18.SAFETY PRECAUTIONS FOR FALL REMAINS ENGAGED, CALL LIGHT IN REACH, WILL ENDORSE TO DAY RN FOR TUCKER.
[2018-04-03 08:00] VITALS: BP 133/53
[2018-04-03] MEDS ORDERED: CHOLECALCIFEROL (VITAMIN D 3) 400 UNIT TABLET PO SCH (09:00)
[2018-04-03] MEDS ORDERED: MORPHINE SULFATE SR 15 MG TABLET.SA PO SCH (09:00)
[2018-04-03] MEDS ORDERED: AZILSARTAN MEDOXOMIL 40 MG PO SCH (09:00)
[2018-04-03] MEDS: METFORMIN 500 MG TABLET PO SCH ×2 (09:00→17:00)
[2018-04-03 09:06] LABS: BASOPHILS % (AUTO) 0.5 % (0.0-2.0); EOSINOPHILS % (AUTO) 6.9 % (0.0-6.0); HEMATOCRIT 30 % (33-45); LYMPHOCYTES # (AUTO) 1.7 /CMM (0.8-4.8); LYMPHOCYTES % (AUTO) 18.9 % (20.0-44.0); MEAN CORPUSCULAR HGB CONC 34 g/dl (31.0-36.0); MEAN CORPUSCULAR VOLUME 80 fL (82-100); MONOCYTES # (AUTO) 0.9 /CMM (0.1-1.30); MONOCYTES % (AUTO) 10.1 % (2.0-12.0); NEUTROPHILS # (AUTO) 5.7 /CMM (1.8-8.9); NEUTROPHILS % (AUTO) 63.6 % (43.0-81.0); PLATELET COUNT (AUTO) 331 /CMM (150-450); RDW COEFFICIENT OF VARIATION 15.1 (11.5-15.0)
[2018-04-03 09:17] LABS: CARBON DIOXIDE 24 mmol/L (21-32); CHLORIDE 108 mmol/L (98-107); CHOLESTEROL 152 mg/dL (<200); CREATININE 0.9 mg/dL (0.6-1.3); GLUCOSE 92 mg/dL (74-106); HDL CHOLESTEROL 50 mg/dL (40-60); LDL 91 mg/dL (0-99); PHOSPHORUS 2.9 mg/dL (2.5-4.9); POTASSIUM 4.8 mmol/L (3.5-5.1); SODIUM SERUM 139 mmol/L (136-145); TRIGLYCERIDES 84 mg/dL (30-150); UREA NITROGEN, BLOOD 23 mg/dL (7-18)
[2018-04-03 09:31] LABS: MAGNESIUM 1.2 mg/dL (1.8-2.4)
[2018-04-03] MEDS ORDERED: MAGNESIUM OXIDE 400 MG TABLET PO ONE (10:30)
[2018-04-03] MEDS: PANTOPRAZOLE 40 MG TABLET.DR PO SCH (10:55)
[2018-04-03] MEDS: ALLOPURINOL 100 MG TABLET PO SCH (10:56)
[2018-04-03] MEDS: MAGNESIUM OXIDE 400 MG TABLET PO SCH ×2 (10:56→18:16)
[2018-04-03] MEDS: LEVOTHYROXINE SODIUM 25 MCG TABLET PO SCH (10:57)
[2018-04-03] MEDS: DOCUSATE SODIUM 100 MG CAPSULE PO SCH ×2 (10:57→18:15)
[2018-04-03] MEDS: MONTELUKAST SODIUM (10MG) 10 MG TABLET PO SCH (10:57)
[2018-04-03] MEDS: CINACALCET HCL 30 MG TABLET PO SCH (10:57)
[2018-04-03] MEDS: ATORVASTATIN 10 MG TABLET PO SCH (10:58)
[2018-04-03 16:00] VITALS: BP 128/71
[2018-04-03] MEDS: HYDROCODONE/APAP 5/325MG 1 EACH TABLET PO PRN ×2 (16:35→21:51)
[2018-04-03] MEDS: LIDOCAINE 5% (PATCH) 1 EA PATCH TP SCH (16:37)
[2018-04-03] MEDS: IV NS 0.9% 1,000 ML IV PRN (16:54)
[2018-04-03] MEDS ORDERED: DOCUSATE SODIUM 100 MG CAPSULE PO SCH (17:00)
--- NOTE | 2018-04-03 18:00 | NUR ---
ORAL MG REPLACEMENT GIVEN FOR LOW MG LEVEL.ADDITIONALLY GIVEN NORCO FOR PAIN AND MOM FOR CONSTIPATION.PAIN MGMT.FIELD GEOLOGIST CALLED AND PAIN MEDS CHANGED.
--- NOTE | 2018-04-03 19:40 | NUR ---
MS/CORRESPONDENCE SECTION SUPERVISOR; RECEIVED PT IN BED SLEEPING. BREATHING NON LABORED. IVF ON PROGRESS. BED ON LOWER POSITION AND LOCKED FOR SAFETY. SIDE RAILS X 4 ARE UP FOR SAFETY. CALL LIGHT WITHIN REACH. WILL CONTINUE TO MONITOR.
[2018-04-03 20:38] VITALS: BP 127/66
--- NOTE | 2018-04-03 20:50 | NUR ---
MS/DRILL OPERATOR PNEUMATIC; PT'S DAUGHTER CALLED AND I DID ANSWER HER AND SHE WAS VERY MAD AND RUDE TO ME THE WAY SHE TALKED ON THE PHONE. SHE SAID THE PT CALLED WAITING, CRYING FOR 40 MINS AND WANTS DIAPER CHANGE. I TOLD THE DAUGHTER AND TRIED TO EXPLAIN TO HER BUT SHE SAID TO ME I WANT YOU TO GO TO HER RIGHT NOW AND CHANGE HER DIAPER. I DID ALSO CALL THE CERTIFIED ORTHOTIST PRACTICE MANAGER TO CHECK THE PT BUT I WENT TO THIS PT AT ONCE TO CHANGE HER DIAPER . I TOLD THE CHARGE NURSE OF THE ABOVE.
--- NOTE | 2018-04-03 20:55 | NUR ---
MS/CANT GANG SAWYER; AT THIS TIME I AM IN PT'S ROOM ABOUT TO CLEAN AND CHANGE HER DIAPER AND THE TRAFFIC CLERK PAGED ME AGAIN THAT THE DAUGHTER CALLED AND WANTS TO TALK TO ME AGAIN. SO I LEFT THE PT FOR A MIN. TO ANSWER THE PHONE AND THIS DAUGHTER WAS VERY MUCH UPSET/ MAD AND RUDE TO ME AGAIN JUST TO TELL ME GO TO THE PT NOW AND CHANGE HER DIAPER. VERY DEMANDING WANTS THINGS TO BE DONE AT ONCE. I DID TRY TO EXPLAIN BUT SHHE WON'T LET GIVE A CHANCE TO EXPLAIN . SO I TOLD THE CHARGE NURSE AGAIN OF THE ABOVE. I WENT BACK TO THE PT TO CONTINUE CLEANING HERAND CHANEGD HER DIAPER. PT WAS REPOSITIONED.
--- NOTE | 2018-04-03 21:50 | NUR ---
MS/WEATHER REPORTER; PT C/O RT HIP PAIN. NORCO 5- 325 MG 1 TAB. PO Q4 PRN GIVEN MIXED WITH APPLE SAUCE.
[2018-04-03] MEDS: LATANOPROST EYE DROP 0.005% 2.5 ML BOTTLE EACHEYE SCH (22:03)
--- NOTE | 2018-04-03 22:30 | NUR ---
MS/PRINCIPAL DEVELOPER; BS 92 NO COVERAGE GIVEN.
[2018-04-04] MEDS: HYDROCODONE/APAP 10/325MG 1 EA TABLET PO PRN ×3 (01:50→17:24)
--- NOTE | 2018-04-04 01:50 | NUR ---
MS/ROLLING MILL PLUGGER; PT C/O RT PAIN AGAIN. CHARGE NURSE CHECKED THIS PT AND EXPLAINED TO HER. NORCO 10- 325 MG 1 TAB. PO Q6 PRN GIVEN WITH APPLE SAUCE.
--- NOTE | 2018-04-04 02:00 | NUR ---
MS/MEDB; PT IS WET WITH URINE. I CLEAN HER AND CHANGED DIAPER. REPOSITIONED. ALSO PT ASKING FOR HER SINGULAIR FOR HER ASTHMA AND I TOLD HER IT WAS GIVEN ALREADY BY THE DAY SHIFT YESTERDAY AND SHE SAID I TAKE THAT AT NIGHT . SO I TOLD THE PT I WILL TELL THE DAY SHIFT TO CHANGE THE TIME TO BE GIVEN AT NIGHT.
[2018-04-04] MEDS: BLOOD SUGAR DIAGNOSTIC 1 EACH STRIP IN SCH ×4 (06:05→22:13)
--- NOTE | 2018-04-04 07:00 | NUR ---
MS/SHOCK ABSORPTION FLOOR LAYER; SO PT WAS ABLE TO RELAX AND SLEEP AFTER SHE HER PAIN MED AT 0150.
--- NOTE | 2018-04-04 07:00 | NUR ---
RN NOTES INITIAL: PATIENT RESTING IN BED. NONLABORED BREATHING NOTED. DENYING PAIN AT THE MOMENT. IV SITES PATENT AND INTACT. BED IN LOWEST LOCKED POSITION. CALL LIGHT AT THE BEDSIDE. EDUCATED PATIENT THAT MEDICATIONS CANNOT BE AT BEDSIDE, STATED THAT SHE UNDERSTAND BUT REFUSED TO HAVE IT SENT TO PHARMACY. PATIENT AOX4, STATING SHE WILL NOT TAKE THE MEDICATION WITHOUT ALERTING ME. MEDICATION BOTTLE PLACED IN BEDSIDE DRESSER'S DRAWERS
--- NOTE | 2018-04-04 07:15 | NUR ---
MS/GLASS BEVELLER; PT WAS ENDORSED TO THE DAY SHIFT AND ALSO I TOLD THE DAY SHIFT RN ABOUT PT'S MED FOUND BY THE CHARGE NURSE ON THE BEDSIDE TABLE.
[2018-04-04] MEDS: LEVOTHYROXINE SODIUM 25 MCG TABLET PO SCH (07:50)
[2018-04-04] MEDS: PANTOPRAZOLE 40 MG TABLET.DR PO SCH (07:51)
[2018-04-04 08:00] VITALS: BP 134/63
[2018-04-04 08:10] LABS: BASOPHILS # (AUTO) 0.1 /CMM (0.0-0.2); BASOPHILS % (AUTO) 0.6 % (0.0-2.0); EOSINOPHILS % (AUTO) 6.5 % (0.0-6.0); HEMATOCRIT 29 % (33-45); HEMOGLOBIN 9.9 g/dL (11.5-14.8); LYMPHOCYTES # (AUTO) 1.8 /CMM (0.8-4.8); LYMPHOCYTES % (AUTO) 22.1 % (20.0-44.0); MEAN CORPUSCULAR HGB CONC 34 g/dl (31.0-36.0); MEAN CORPUSCULAR VOLUME 80 fL (82-100); MONOCYTES # (AUTO) 0.9 /CMM (0.1-1.30); MONOCYTES % (AUTO) 10.7 % (2.0-12.0); NEUTROPHILS # (AUTO) 4.9 /CMM (1.8-8.9); NEUTROPHILS % (AUTO) 60.1 % (43.0-81.0); PLATELET COUNT (AUTO) 308 /CMM (150-450); RDW COEFFICIENT OF VARIATION 14.8 (11.5-15.0); RED BLOOD CELL COUNT(AUTO) 3.65 MIL/uL (4.0-5.2); WHITE BLOOD COUNT (AUTO) 8.1 K/uL (4.3-11.0)
[2018-04-04 08:52] LABS: CARBON DIOXIDE 22 mmol/L (21-32); CHLORIDE 108 mmol/L (98-107); GLUCOSE 92 mg/dL (74-106); MAGNESIUM 1.5 mg/dL (1.8-2.4); PHOSPHORUS 2.7 mg/dL (2.5-4.9); POTASSIUM 4.7 mmol/L (3.5-5.1); SODIUM SERUM 138 mmol/L (136-145); UREA NITROGEN, BLOOD 21 mg/dL (7-18)
[2018-04-04] MEDS ORDERED: SPIRONOLACTONE 25 MG TABLET PO SCH (09:00)
[2018-04-04] MEDS ORDERED: CLOPIDOGREL BISULFATE 75 MG TABLET PO SCH (09:00)
[2018-04-04] MEDS: CHOLECALCIFEROL 1,000 UNIT TABLET (VIT D3) PO SCH (09:20)
[2018-04-04] MEDS: DOCUSATE SODIUM 100 MG CAPSULE PO SCH ×2 (09:21→18:00)
[2018-04-04] MEDS: MAGNESIUM OXIDE 400 MG TABLET PO SCH ×2 (09:23→17:00)
[2018-04-04] MEDS: MONTELUKAST SODIUM (10MG) 10 MG TABLET PO SCH (09:23)
[2018-04-04] MEDS: ALLOPURINOL 100 MG TABLET PO SCH (09:25)
[2018-04-04] MEDS: CINACALCET HCL 30 MG TABLET PO SCH (09:25)
[2018-04-04] MEDS: ATORVASTATIN 10 MG TABLET PO SCH (09:25)
[2018-04-04] MEDS: METFORMIN 500 MG TABLET PO SCH ×2 (09:27→17:00)
[2018-04-04] MEDS ORDERED: MONTELUKAST SODIUM (10MG) 10 MG TABLET PO SCH (10:56)
[2018-04-04] MEDS ORDERED: NA PHOS,M-B/NA PHOS,DI-BA 1 EA ENEMA RC PRN (13:00)
[2018-04-04] MEDS ORDERED: SENNOSIDES/DOCUSATE SODIUM 1 TAB TABLET PO SCH (13:00)
--- NOTE | 2018-04-04 15:26 | NUR ---
PER CARMINA PARKER, 1 G MAGNESIUM IV ALSO, TO DISCONTINUE SENNOKOT DAUGHTER IS REFUSING IT. EXPLAINED BENEFITS AND RISKS TO DAUGHTER
[2018-04-04] MEDS ORDERED: Magnesium 1 GM/2 ML VIAL IV ONE (15:30)
[2018-04-04] MEDS ORDERED: Magnesium 1GM/D5W 100ML PREMIX 100 ML IV SCH (15:36)
[2018-04-04 16:00] VITALS: BP 103/52
[2018-04-04] MEDS: LIDOCAINE 5% (PATCH) 1 EA PATCH TP SCH (17:32)
--- NOTE | 2018-04-04 18:00 | NUR ---
PATIENT'S FAMILY REFUSING TO PROVIDE EDARBI TO PHARMACY DAUGHTER LUKE EDUCATED ON BENEFITS AND RISKS, EDUCATED THAT MEDICATION CANNOT BE LEFT AT BEDSIDE AND HAS TO BE ADMINISTERED BY A REGISTERED NURSE AT THE ORDERED TIME. FAMILY MEMBER STILL REFUSING , SHE TOOK THE PAIN MEDICATION WITH HER HOME CARMINA PARKER HRIS SPECIALIST AWARE AND SPOKE TO TIME FROM PHARMACY DAUGHTER ALSO REFUSING TO PROVIDE INHALER
--- NOTE | 2018-04-04 18:46 | NUR ---
PATIENT REFUSED METFORMIN, MAGNESIUM, AND COLACE. MAGNESIUM IV 1 GM INFUSED. ENEMA GIVEN PER CARMINA PARKER'S ORDERS.
--- NOTE | 2018-04-04 19:32 | NUR ---
RN NOTES PATIENT RESTING IN BED. NONLABORED BREATHING NOTED ON ROOM AIR. DENYING PAIN AT THE MOMENT. IV ON RIGHT FOREARM 20 AND LEFT ARM 20 PATENT AND INTACT WITH ORDERED FLUIDS INFUSING. PATIENT TURNED AND REPOSITIONED EVERY 2 HOURS, KEPT CLEAN AND DRY. ENEMA ADMINISTERED PER ORDERS. NO BOWEL MOVEMENT YET, BOWEL SOUNDS ACTIVE IN ALL QUADRANTS, ENDORSED TO NEXT SHIFT
--- NOTE | 2018-04-04 19:50 | NUR ---
MS RN OPENING NOTE Patient was seen sitting upright in bed AAOx3, breathing on RA with no SOB, and no signs of acute distress. NS is running at 75ml/hr through left AC. Patient is comfortable in bed with no immediate needs or concerns. Bed is the low/locked position, two side rails up, call alcazar within reach. Will continue to monitor.
[2018-04-04 20:00] VITALS: BP 128/58
[2018-04-04] MEDS: HYDROCODONE/APAP 5/325MG 1 EACH TABLET PO PRN (20:35)
[2018-04-04] MEDS: LATANOPROST EYE DROP 0.005% 2.5 ML BOTTLE EACHEYE SCH (22:18)
--- NOTE | 2018-04-04 23:58 | NUR ---
MS RN NOTE Report given to Nedra for continuity of patient care. Evening meds administered. Patient in stable condition.
--- NOTE | 2018-04-05 | NUR ---
MS RN NOTE RECEIVED REPORT FROM CHRISTIANO FOR CONTINUITY OF CARE. CALL LIGHT WITHIN REACH. WILL MONITOR
[2018-04-05] MEDS: HYDROCODONE/APAP 10/325MG 1 EA TABLET PO PRN (00:21)
--- NOTE | 2018-04-05 06:44 | NUR ---
MS RN CLOSING NOTE PT REMAINED STABLE DURING SHIFT. NO ACUTE DISTRESS NOTED. PAIN MANAGED WITH MEDICATIONS AND GIVEN ORDERED. REPOSITIONED Q2H. NO DISCOMFORT NOTED AT THIS TIME. CALL LIGHT WITHIN REACH. WILL ENDORSE TO NEXT SHIFT FOR CONTINUITY OF CARE.
--- NOTE | 2018-04-05 07:00 | NUR ---
RN INITIAL NOTES: Received patient on bed, asleep, but easily arousable. Breathing even and unlabored. Not in distress. Peripheral IV patent and intact with fluids infusing via IV pump, on R wrist g22. Patient in stable condition as endorsed by the shift boss RN.
[2018-04-05 07:02] LABS: BASOPHILS % (AUTO) 0.4 % (0.0-2.0); EOSINOPHILS % (AUTO) 6.1 % (0.0-6.0); HEMATOCRIT 32 % (33-45); HEMOGLOBIN 10.9 g/dL (11.5-14.8); LYMPHOCYTES # (AUTO) 1.6 /CMM (0.8-4.8); MEAN CORPUSCULAR HGB CONC 34 g/dl (31.0-36.0); MEAN CORPUSCULAR VOLUME 81 fL (82-100); MONOCYTES # (AUTO) 0.8 /CMM (0.1-1.30); MONOCYTES % (AUTO) 10.1 % (2.0-12.0); NEUTROPHILS # (AUTO) 5.4 /CMM (1.8-8.9); NEUTROPHILS % (AUTO) 64.4 % (43.0-81.0); PLATELET COUNT (AUTO) 306 /CMM (150-450); RDW COEFFICIENT OF VARIATION 14.5 (11.5-15.0); RED BLOOD CELL COUNT(AUTO) 3.97 MIL/uL (4.0-5.2); WHITE BLOOD COUNT (AUTO) 8.3 K/uL (4.3-11.0)
[2018-04-05 07:31] LABS: CALCIUM, SERUM 9.6 mg/dL (8.5-10.1); CARBON DIOXIDE 25 mmol/L (21-32); CHLORIDE 109 mmol/L (98-107); GLUCOSE 91 mg/dL (74-106); MAGNESIUM 1.6 mg/dL (1.8-2.4); PHOSPHORUS 2.9 mg/dL (2.5-4.9); POTASSIUM 4.3 mmol/L (3.5-5.1); SODIUM SERUM 141 mmol/L (136-145); UREA NITROGEN, BLOOD 19 mg/dL (7-18)
[2018-04-05] MEDS: LEVOTHYROXINE SODIUM 25 MCG TABLET PO SCH (07:57)
[2018-04-05] MEDS: PANTOPRAZOLE 40 MG TABLET.DR PO SCH (07:57)
[2018-04-05 08:00] VITALS: BP 160/72
[2018-04-05] MEDS: HYDROCODONE/APAP 5/325MG 1 EACH TABLET PO PRN ×2 (08:03→16:13)
[2018-04-05] MEDS: BLOOD SUGAR DIAGNOSTIC 1 EACH STRIP IN SCH ×3 (08:14→17:30)
[2018-04-05] MEDS: DOCUSATE SODIUM 100 MG CAPSULE PO SCH ×2 (08:22→17:00)
[2018-04-05] MEDS: MAGNESIUM OXIDE 400 MG TABLET PO SCH ×2 (08:23→17:00)
[2018-04-05] MEDS: METFORMIN 500 MG TABLET PO SCH ×2 (08:23→17:00)
[2018-04-05] MEDS: CINACALCET HCL 30 MG TABLET PO SCH (08:24)
[2018-04-05] MEDS: ALLOPURINOL 100 MG TABLET PO SCH (08:25)
[2018-04-05] MEDS: ATORVASTATIN 10 MG TABLET PO SCH (08:25)
[2018-04-05] MEDS: CHOLECALCIFEROL 1,000 UNIT TABLET (VIT D3) PO SCH (08:25)
[2018-04-05] MEDS ORDERED: MAGNESIUM OXIDE 400 MG TABLET PO SCH (10:00)
[2018-04-05] MEDS: Magnesium 1GM/D5W 100ML PREMIX 100 ML IV SCH ×2 (10:05→12:02)
--- NOTE | 2018-04-05 10:28 | NUR ---
WOUND CARE CONSULT: PT PRESENTS WITH REDNESS AND EDEMA WITH DRY SKIN TO LOWER LEGS AND FEET. DRY ABRASION NOTED TO RT BUTTOCK WITH MOIST AREAS TO GROIN AND GLUTEAL CREASE WITH REDNESS. PT IN INCONTINENT. RECOMMENDATIONS MADE FOR SKIN PROTECTION AND CARE. DISCUSSED WITH NURSING STAFF. PT ON ARBEN ISOFLEX LOW AIRLOSS BED. ALL SKIN PROTECTION MEASURES IN PLACE. WILL SEE PRN. CAMPBELL IN AGREEMENT WITH PLAN OF CARE. Addendum: 04/05/18 at 1030 by DARSHANA HOWE WNDNU Amended: Links added.
[2018-04-05] MEDS ORDERED: MINERAL OIL/PETROLATUM,WHITE 120 GM JAR TP PRN (11:00)
[2018-04-05] MEDS ORDERED: LIDO30AD10 TP (14:34)
[2018-04-05] MEDS ORDERED: DOCU-141 PO (14:34)
[2018-04-05] MEDS ORDERED: HYDR-3972 PO (14:34)
[2018-04-05] MEDS ORDERED: Hydrocodone/Apap 10/325MG PO (14:34)
[2018-04-05 16:00] VITALS: BP 148/68
--- NOTE | 2018-04-05 16:00 | NUR ---
MS RN NOTES INFORMED DAUGHTER OF PATIENTS DISCHARGE STATES SHE IS AWARE. STATES SHE WILL MEET PATIENT AT [facility].
--- NOTE | 2018-04-05 16:05 | NUR ---
MS RN NOTES REPORT GIVEN OT GENA KEEN AT [facility]. DISCHARGE INSTRUCTIONS PROVIDED TO PATIENT WITH HELP OF VISITOR SERVICE ASSISTANT. VERBALIZED UNDERSTANDING.
[2018-04-05] MEDS: LIDOCAINE 5% (PATCH) 1 EA PATCH TP SCH (16:13)
--- NOTE | 2018-04-05 17:30 | NUR ---
MS RN NOTES PATIENT DISCHARGED TO [facility] VIA AMBULANCE WITH EMT. PATIENT ALERT, ORIENTED X3. NO SOB OR ACUTE DISTRESS NOTED. VS WNL LIMITS. ALL BELONGINGS ACCOUNTED FOR BOTH WITH PATIENTS DAUGHTER OVER THE PHONE AND PATIENT. BELONGING LIST SIGNED. DISCHARGE PROTOCOL FOLLOWED. PICTURES TAKEN OVER NIGHT. REPORT GIVEN TO EMT AT BEDSIDE. DISCHARGE TEACHING PROVIDED TO PATIENT AND PATIENTS DAUGHTER. PATIENT VERBALIZED FAIR UNDERSTANDING. MD AWARE OF ALL ABNORMAL LABS. REPORT GIVEN TO GENA KEEN.
== END 2018-04-05 17:30 | DRG 554 ==
LOC: ER 10:54 → MED 13:41 → TELE 20:30 → MED 04-03 08:44
PROVIDERS: ADMIT Nurse Practitioner Acute Care; ATTEND Nurse Practitioner Acute Care
DX: M16.10 Unilateral primary osteoarthritis, unspecified hip (principal); L03.115 Cellulitis of right lower limb; E11.65 Type 2 diabetes mellitus with hyperglycemia; E83.42 Hypomagnesemia; E83.52 Hypercalcemia; E87.1 Hypo-osmolality and hyponatremia; L03.116 Cellulitis of left lower limb; D63.8 Anemia in other chronic diseases classified elsewhere; M84.45 Pathological fracture, femur and pelvis; W18.30XA Fall on same level, unspecified, initial encounter; E86.0 Dehydration; W19.XXXA Unspecified fall, initial encounter; Y92.009 Unspecified place in unspecified non-institutional (private) residence as the place of occurrence of the external cause; J45.909 Unspecified asthma, uncomplicated; I25.10 Atherosclerotic heart disease of native coronary artery without angina pectoris; Z88.1 Allergy status to other antibiotic agents; Z88.0 Allergy status to penicillin; Z88.2 Allergy status to sulfonamides; Z79.84 Long term (current) use of oral hypoglycemic drugs; Z79.899 Other long term (current) drug therapy; Z74.09 Other reduced mobility; I10 Essential (primary) hypertension; Z79.891 Long term (current) use of opiate analgesic; Z79.51 Long term (current) use of inhaled steroids; K59.00 Constipation, unspecified; Z90.49 Acquired absence of other specified parts of digestive tract; Z98.890 Other specified postprocedural states; G89.4 Chronic pain syndrome; M19.90 Unspecified osteoarthritis, unspecified site; M84.452S Pathological fracture, left femur, sequela
CPT/HCPCS: 36415; 71045-TC; 72128-TC; 72131-TC; 72170-TC; 72192-TC; 80048-TC; 80061-TC; 80076-TC; 82962-TC; 83735-TC; 84100-TC; 84484-TC; 85025-TC; 85730-TC; 93307-TC; 97530-TC; A4606; J1170; J1815; J2270; J2405; J3475; J7030; Z7610